=== PATIENT | male | born 1960 | race Caucasian/White ===

== ENCOUNTER 2016-07-17 09:49 | Emergency (ER) | payer OTHER ==
[2016-07-17 10:01] VITALS: BP 147/95
--- NOTE | 2016-07-17 10:53 | EDM.PDOC ---
ED HPI GENERAL MEDICAL PROBLEM - General Chief Complaint: General Stated Complaint: FELL YESTERDAY/HAS LESIONS Time Seen by Provider: 07/17/16 10:21 Source of Information: Reports: Patient History Limitations: Reports: No limitations - History of Present Illness INITIAL COMMENTS - FREE TEXT/NARRATIVE: This 55 yo male patient reports to the ED due to pain in his left lower ribs and in bilateral lower extremities. The patient reports he fell 3 times yesterday morning and has not been able to walk since that time. The patient reports he had no loss of consciousness before during or after the fall. The patient reports he has been having some intermittent dizziness over the past 3 weeks. The patient reports he saw Dr. Rivera 2 weeks ago, but has not talked to him about the dizziness episodes. The patient reports he has been taking Oxycodone 4 times per day for the pain in his neck from throat cancer. The patient also admits to drinking a 40 ounce beer yesterday and having an alcoholic drink this morning. The patient came into the ED in a wheelchair with crutches. The patient reports he has not take any Oxycodone today, but will be getting a refill "after he leaves here." Onset: gradual Duration: Day(s):, Constant, Getting worse Location: Reports: chest (left ribs), lower extremity, left, lower extremity, right Quality: Reports: Ache, Sharp Severity: severe Improves with: Reports: Medication (both oxycodone and ) Worsens with: Reports: Movement Context: Reports: Other Associated Symptoms: Reports: weakness Treatments [employer]: Reports: Other medication(s) Left Thoracic Pain Score (Numeric/FACES): 8 - Related Data Allergies Allergy/AdvReac Type Severity Reaction Status Date / Time No Known Allergies Allergy Verified 01/31/14 08:48 Home Meds: Home Meds Magnesium Oxide [Magnesium Oxide] 400 mg PO TID 07/17/16 [History] oxyCODONE HCl [Oxycodone HCl] 10 mg PO QID 07/17/16 [History] Past Medical History - Past Health History Medical/Surgical History: Denies Medical/Surgical History HEENT History: Reports: None Cardiovascular History: Reports: None Respiratory History: Reports: COPD Gastrointestinal History: Reports: None Genitourinary History: Reports: None Musculoskeletal History: Reports: None Neurological History: Reports: None Endocrine/Metabolic History: Reports: None Hematologic History: Reports: None Oncologic (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 - Past Surgical History HEENT Surgical History: Reports: Cataract surgery Social & Family History - Family History Family Medical History: Noncontributory - Tobacco Use Smoking Status *Q: Current Every Day Smoker Years of Tobacco use: 38 Packs/Tins Daily: 0.5 Used Tobacco, but Quit: No Second Hand Smoke Exposure: Yes - Caffeine Use Caffeine Use: Reports: Coffee - Alcohol Use Days Per Week of Alcohol Use: 7 Number of Drinks Per Day: 2 Total Drinks Per Week: 14 Date of Last Drink: 07/16/16 - Recreational Drug Use Recreational Drug Use: No ED ROS GENERAL - Review of Systems Review Of Systems: ROS reveals no pertinent complaints other than HPI. ED EXAM, GENERAL - Physical Exam Exam: See Below Exam Limited By: No limitations General Appearance: alert, WD/WN, moderate distress, thin Eye Exam: bilateral eye: EOMI, normal inspection, PERRL Ears: normal external exam, normal canal, hearing grossly normal, normal TMs Nose: normal inspection, normal mucosa, no blood Throat/Mouth: Normal inspection, Normal lips, Normal teeth, Normal gums, Normal oropharynx, Normal voice, No airway compromise Head: atraumatic, normocephalic Neck: tender lateral, tender midline, other (history of throat cancer) Respiratory/Chest: no respiratory distress, no accessory muscle use, wheezing, other (Current 1/2 pack per day smoker with no plans to quit, left lower rib pain) Cardiovascular: normal peripheral pulses, regular rate, rhythm, no edema, no gallop, no JVD, no murmur, no rub GI/Abdominal: normal bowel sounds, soft, non tender, no organomegaly, no distention, no abnormal bruit, no mass (Male) Exam: Deferred Rectal (Males) Exam: Deferred Back Exam: normal inspection, full range of motion, NT Extremities: leg pain (bilateral lower extremity pain) Neurological: alert, oriented, CN II-XII intact, normal cognition Psychiatric: depressed mood, flat affect Skin Exam: Warm, Dry, Normal color, No rash, Other (The patient has a laceration to his left medial foot (>24 hours old). Wound was cleaned and dressed with bacitracin while in the Ed. ) Lymphatic: no adenopathy Course - Vital Signs Last Recorded V/S: Last Vital Signs Temp 37.4 C 07/17/16 10:00 Pulse 95 07/17/16 10:00 Resp 16 07/17/16 10:00 BP 147/95 H 07/17/16 10:00 Pulse Ox 92 L 07/17/16 10:00 - Orders/Labs/Meds Orders: Active Orders 24 hr Category Date Time Status Sodium Chloride 0.9% [Normal Saline] 1,000 ml Med 07/17/16 11:49 Active IV .BOLUS Medication Orders Sodium Chloride (Normal Saline) 1,000 mls @ 999 mls/hr IV .BOLUS ONE Stop: 07/17/16 12:49 Last Admin: 07/17/16 12:10 Dose: 999 mls/hr Labs: Laboratory Tests 07/17/16 07/17/16 07/17/16 Range/Units 10:45 10:45 10:45 WBC 9.0 (5.0-10.0) 10^3/uL RBC 3.24 L (4.6-6.2) 10^6/uL Hgb 11.7 L (14.0-18.0) g/dL Hct 34.2 L (40.0-54.0) % MCV 105.6 H (80-100) fL MCH 36.1 H (27.0-34.0) pg MCHC 34.2 (33.0-35.0) g/dL Plt Count 134 L (150-450) 10^3/uL Neut % (Auto) 81.5 H (42.2-75.2) % Lymph % (Auto) 4.9 L (20.5-50.1) % [place] % (Auto) 12.9 H (2-8) % Eos % (Auto) 0.1 L (1.0-3.0) % Baso % (Auto) 0.6 (0.0-1.0) % Sodium 127 L (135-145) mmol/L Potassium 4.0 (3.6-5.0) mmol/L Chloride 82 L (101-111) mmol/L Carbon Dioxide 29.0 (21.0-31.0) mmol/L Anion Gap 20.0 BUN 9 (7-18) mg/dL Creatinine 0.5 L (0.6-1.3) mg/dL Est Cr Clr Drug Dosing 157.12 mL/min Estimated GFR (MDRD) > 60 BUN/Creatinine Ratio 18.00 Glucose 86 (74-105) mg/dL Calcium 8.9 (8.4-10.2) mg/dl Magnesium 1.7 L (1.8-2.5) mg/dL Total Bilirubin 1.1 H (0.2-1.0) mg/dL AST 54 H (10-42) IU/L ALT 27 (10-60) IU/L Alkaline Phosphatase 80 (42-121) IU/L Ammonia 10 L (11-35) umol/L Total Protein 7.7 (6.7-8.2) g/dl Albumin 3.2 (3.2-5.5) g/dl Globulin 4.5 Albumin/Globulin Ratio 0.71 Urine Color (YELLOW) Urine Appearance (CLEAR) Urine pH (5.0-9.0) Ur Specific Slaughter (1.005-1.030) Urine Protein (NEGATIVE) Urine Glucose (UA) (NEGATIVE) Urine Ketones (NEGATIVE) Urine Occult Blood (NEGATIVE) Urine Nitrite (NEGATIVE) Urine Bilirubin (NEGATIVE) Urine Urobilinogen (0.2-1.0) mg/dL Ur Leukocyte Esterase (NEGATIVE) Urine RBC /HPF Urine WBC (0-5/HPF) /HPF Ur Epithelial Cells /HPF Urine Bacteria (0-FEW/HPF) /HPF Urine Opiates Screen (NEGATIVE) Ur Oxycodone Screen (NEGATIVE) Urine Methadone Screen (NEGATIVE) Ur Barbiturates Screen (NEGATIVE) U Tricyclic Antidepress (NEGATIVE) Ur Phencyclidine Scrn (NEGATIVE) Ur Amphetamine Screen (NEGATIVE) U Methamphetamines Scrn (NEGATIVE) Urine MDMA Screen (NEGATIVE) U Benzodiazepines Scrn (NEGATIVE) Urine Cocaine Screen (NEGATIVE) U Marijuana (THC) Screen (NEGATIVE) Ethyl Alcohol 98 mg/dL 07/17/16 07/17/16 Range/Units 10:50 10:50 WBC (5.0-10.0) 10^3/uL RBC (4.6-6.2) 10^6/uL Hgb (14.0-18.0) g/dL Hct (40.0-54.0) % MCV (80-100) fL MCH (27.0-34.0) pg MCHC (33.0-35.0) g/dL Plt Count (150-450) 10^3/uL Neut % (Auto) (42.2-75.2) % Lymph % (Auto) (20.5-50.1) % [place] % (Auto) (2-8) % Eos % (Auto) (1.0-3.0) % Baso % (Auto) (0.0-1.0) % Sodium (135-145) mmol/L Potassium (3.6-5.0) mmol/L Chloride (101-111) mmol/L Carbon Dioxide (21.0-31.0) mmol/L Anion Gap BUN (7-18) mg/dL Creatinine (0.6-1.3) mg/dL Est Cr Clr Drug Dosing mL/min Estimated GFR (MDRD) BUN/Creatinine Ratio Glucose (74-105) mg/dL Calcium (8.4-10.2) mg/dl Magnesium (1.8-2.5) mg/dL Total Bilirubin (0.2-1.0) mg/dL AST (10-42) IU/L ALT (10-60) IU/L Alkaline Phosphatase (42-121) IU/L Ammonia (11-35) umol/L Total Protein (6.7-8.2) g/dl Albumin (3.2-5.5) g/dl Globulin Albumin/Globulin Ratio Urine Color Yellow (YELLOW) Urine Appearance Clear (CLEAR) Urine pH 7.5 (5.0-9.0) Ur Specific Slaughter 1.020 (1.005-1.030) Urine Protein >=300 H (NEGATIVE) Urine Glucose (UA) Negative (NEGATIVE) Urine Ketones 80 H (NEGATIVE) Urine Occult Blood Trace-intact H (NEGATIVE) Urine Nitrite Negative (NEGATIVE) Urine Bilirubin Negative (NEGATIVE) Urine Urobilinogen 1.0 (0.2-1.0) mg/dL Ur Leukocyte Esterase Negative (NEGATIVE) Urine RBC 0-5 /HPF Urine WBC 0-5 (0-5/HPF) /HPF Ur Epithelial Cells Rare /HPF Urine Bacteria Few (0-FEW/HPF) /HPF Urine Opiates Screen Negative (NEGATIVE) Ur Oxycodone Screen Positive H (NEGATIVE) Urine Methadone Screen Negative (NEGATIVE) Ur Barbiturates Screen Negative (NEGATIVE) U Tricyclic Antidepress Negative (NEGATIVE) Ur Phencyclidine Scrn Negative (NEGATIVE) Ur Amphetamine Screen Negative (NEGATIVE) U Methamphetamines Scrn Negative (NEGATIVE) Urine MDMA Screen Negative (NEGATIVE) U Benzodiazepines Scrn Negative (NEGATIVE) Urine Cocaine Screen Negative (NEGATIVE) U Marijuana (THC) Screen Negative (NEGATIVE) Ethyl Alcohol mg/dL Meds: Medications Generic Name Dose Route Start Last Admin Trade Name Giorgi PRN Reason Stop Dose Admin Sodium Chloride 1,000 mls @ 999 mls/hr 07/17/16 11:49 07/17/16 12:10 Normal Saline IV 07/17/16 12:49 999 mls/hr .BOLUS ONE Administration Discontinued Medications Generic Name Dose Route Start Last Admin Trade Name Giorgi PRN Reason Stop Dose Admin Bacitracin 1 dose 07/17/16 11:55 07/17/16 12:10 Bacitracin Oint 1 Gm TOP 07/17/16 11:56 1 dose ONETIME ONE Administration Departure - Departure Time of Disposition: 12:36 Disposition: Home, Self-Care 01 Condition: fair Clinical Impression: Multiple falls, Dehydration Instructions: Fall Prevention in the Home, [id number], Dehydration, Adult, [id number] Forms: ED Department Discharge Care Plan Goals: The patient was advised of the examination, lab and x-ray results during the visit. The patient was given a liter of IV fluid while in the ED. The patient's foot wound was dressed with antibiotic ointment and a bandaid. The patient was encouraged to take his prescription medications as directed. The patient should avoid alcohol use. If the patient has any additional symptoms or concerns, the patient should follow-up with his primary care facility or return to the emergency department. - My Orders Last 24 Hours: My Active Orders 07/17/16 11:49 Sodium Chloride 0.9% [Normal Saline] 1,000 ml IV .BOLUS - Assessment/Plan Last 24 Hours: My Active Orders 07/17/16 11:49 Sodium Chloride 0.9% [Normal Saline] 1,000 ml IV .BOLUS
[2016-07-17 11:14] LABS: CHLORIDE,CL 82 mmol/L (101-111); SODIUM,NA 127 mmol/L (135-145)
[2016-07-17] MEDS ORDERED: Sodium Chloride 0.9% 1,000 ML IV ONE (11:49)
--- NOTE | 2016-07-17 11:51 | CR ---
CLINICAL HISTORY: 55-year-old male with leg pain after fall. INTERPRETATION: Negative. No sign of pathologic skeletal lesion, long bone tib/fib fracture either lower extremity (faint vasc ular calcifications noted incidentally).
--- NOTE | 2016-07-17 11:53 | CR ---
CLINICAL HISTORY: 55-year-old male with bilateral leg pain associated with fall. INTERPRETATION: Frog lateral hips and AP/lateral femurs, bilaterally unremarkable. No sign of pathologic skeletal lesion, long bone fracture, either hip or knee dislocation. (Small louis prapatellar bursal effusion right knee).
--- NOTE | 2016-07-17 11:53 | CR ---
CLINICAL HISTORY: 55-year-old male with bilateral leg pain after fall. INTERPRETATION: Arteriosclerotic vascular calcifications iliac and femoral arteries bilaterally. Symmetric spacing normal-appearing SI and hip joints without arthritic degenerative change. No sign of pathologic skeletal lesion, pelvic or either hip fracture/dislocation. No foreign bodies. CONCLUSION: No fractures.
[2016-07-17] MEDS ORDERED: Bacitracin Oint 1 GM U/D Packet TOP ONE (11:55)
== END 2016-07-17 13:23 | disposition home or self-care (01) ==
LOC: DL.ED 09:49
DX: E86.0 Dehydration (principal); R07.81 Pleurodynia; J44.9 Chronic obstructive pulmonary disease, unspecified; F17.210 Nicotine dependence, cigarettes, uncomplicated; Z98.49 Cataract extraction status, unspecified eye; W19.XXXA Unspecified fall, initial encounter
CPT/HCPCS: 36415; 72170; 73552; 73590; 80053; 80305; 81001; 82140; 83735; 85025; 96360; 99284; G0480; J1642; J7030